=== PATIENT | male | born 2000 | race Two or more races ===

== ENCOUNTER 2019-05-01 08:32 | Emergency (ER) | payer OTHER ==
--- NOTE | 2019-05-01 09:26 | EDM.PDOC ---
ED HPI GENERAL MEDICAL PROBLEM - General Chief Complaint: ENT Problem Stated Complaint: FLASH BURN Time Seen by Provider: 05/01/19 09:02 Source of Information: Reports: Patient, RN Notes Reviewed - History of Present Illness INITIAL COMMENTS - FREE TEXT/NARRATIVE: 19-year-old male comes in with severe bilateral eye discomfort. 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 There also is some sandblasting that goes on. However he did not feel anything get into his eyes while working. His eyes were still pain-free when he finished his shift about 2:00 this morning. And awakened an hour or so ago with severe bilateral eye pain. He does wear special eyeglasses that are supposed to give him protection from the UV light. He does not wear contacts. Bilateral Eye Pain Score (Numeric/FACES): 10 - Related Data Allergies Allergy/AdvReac Type Severity Reaction Status Date / Time No Known Allergies Allergy Verified 05/01/19 08:42 Home Meds: Home Meds . [No Known Home Meds] 10/07/18 [History] Past Medical History - Past Health History Medical/Surgical History: Denies Medical/Surgical History Social & Family History - Tobacco Use Smoking Status *Q: Never Smoker - Caffeine Use Caffeine Use: Reports: None - Living Situation & Occupation Living situation: Reports: Single Occupation: Employed ED ROS ENT - Review of Systems Review Of Systems: See Below HEENT: Reports: Other (Severe bilateral eye pain) Respiratory: Reports: No Symptoms Cardiovascular: Reports: No Symptoms GI/Abdominal: Reports: No Symptoms Musculoskeletal: Reports: No Symptoms Skin: Denies: Rash, Erythema ED EXAM, ENT - Physical Exam Exam: See Below General Appearance: Alert, Moderate Distress Eye Exam: Bilateral Eye: Conjunctival Injection (Moderate), PERRL, Other (Slit- lamp exam shows I lateral conjunctival inflammation, edema compatible with UV keratitis, no foreign material seen) Head: Atraumatic Respiratory/Chest: No Respiratory Distress Neurological: Alert, No Motor/Sensory Deficits Skin: Warm, Normal Color Course - Vital Signs Last Recorded V/S: Last Vital Signs Temp 98.4 F 05/01/19 08:42 Pulse 80 05/01/19 08:42 Resp 18 05/01/19 08:42 BP 112/75 05/01/19 08:42 Pulse Ox 100 05/01/19 08:42 - Re-Assessments/Exams Free Text/Narrative Re-Assessment/Exam: 05/01/19 10:28 Patient did get complete relief of discomfort with proparacaine eyedrops Departure - Departure Time of Disposition: 09:23 Disposition: Home, Self-Care 01 Condition: Fair Clinical Impression: Ultraviolet keratitis of both eyes - Discharge Information Instructions: Ultraviolet Keratitis, [id number] Referrals: PCP,None [Primary Care Provider] - Forms: ED Department Discharge, ED Return to Work/School Form Additional Instructions: rest, no work today or tonight, this usually takes about 24 hours to heal. ketoralac opth soln. 1 drop each eye 4 times daily for 3 days. You may also alternate tylenol and ibuprofen as needed for discomfort. Follow up with your eye doctor if not completely back to normal by Saturday as expected.
== END 2019-05-01 09:34 | disposition home or self-care (01) ==
LOC: JD.ED 08:32
DX: H16.133 Photokeratitis, bilateral (principal)
CPT/HCPCS: 99283